=== PATIENT | male | born 1975 | race Native Hawaiian/Other Pacific Islander ===

== ENCOUNTER 2017-08-27 11:21 | Outpatient (CLI) | payer OTHER | END 2017-08-27 14:00 | disposition home or self-care (01) | LOC: RAD 11:21 | DX: M79.602 Pain in left arm (principal) ==

== ENCOUNTER 2020-05-08 09:47 | Outpatient (CLI) | payer OTHER | END 2020-05-08 20:05 | disposition home or self-care (01) | LOC: LAB 09:47 | DX: U07.1 COVID-19 (principal); R42 Dizziness and giddiness; R43.0 Anosmia; R63.4 Abnormal weight loss; R53.83 Other fatigue | CPT/HCPCS: 87635; U0002 ==